=== PATIENT | female | born 1965 | race Caucasian/White ===

== ENCOUNTER → 2018-10-19 | Outpatient (CLI) | payer BC ==
[~2018-10-19] MED LIST: IOHEXOL 350 MG/ML 100 ML VIAL. IV ONE
--- NOTE | 2018-10-19 10:33 | CARD ---
MR#: [id number] Date of Study: 10/19/2018 Ordering Physician: CLARENCE KING, Referring Physician: CLARENCE KING, Tech: Casi Coates RDCS APPROVED REPORT EXAM: Two-dimensional and M-mode echocardiogram with Doppler and color Doppler. Other Information Quality : GoodHR: 75bpm Rhythm : NSR INDICATION Bicuspid Aortic valve 2D DIMENSIONS RVDd2.6 (2.9-3.5cm)Left Atrium(2D)3.3 (1.6-4.0cm) IVSd1.1 (0.7-1.1cm)Aortic Root(2D)2.7 (2.0-3.7cm) LVDd4.9 (3.9-5.9cm)LVOT Diameter1.9 (1.8-2.4cm) PWd1.0 (0.7-1.1cm)LVDs2.9 (2.5-4.0cm) FS (%) 39.8 %SV78.7 ml LVEF(%)70.3 (>50%) M-Mode DIMENSIONS Left Atrium(MM)3.27 (2.5-4.0cm)Aortic Root2.41 (2.2-3.7cm) Aortic Valve AoV Peak Hong.142.2cm/sAoV VTI27.1cm AO Peak GR.8.1mmHgLVOT Peak Hong.90.7cm/s LVOT VTI 21.14cmAO Mean GR.4mmHg ISABELLE (VMAX)1.43es7ZSA (VTI)2.15cm2 Mitral Valve MV E Ddejbdba209.0cm/sMV DECEL [id number] MV A Gdklyejb60.9cm/sE/A Ratio1.2 Pulmonary Valve PV Peak Fejulgfd519.8cm/sPV Peak Grad.7mmHg LEFT VENTRICLE The left ventricle is normal size. Proximal septal thickening is noted. The left ventricular systolic function is normal. The Ejection Fraction is 65-70%. There is normal LV segmental wall motion. The l eft ventricular diastolic function and filling is normal for age. RIGHT VENTRICLE The right ventricle is normal size. There is normal right ventricular wall thickness. The right ventr icular systolic function is normal. ATRIA The left atrium size is normal. The right atrium size is normal. The interatrial septum is intact wit h no evidence for an atrial septal defect or patent foramen ovale as noted on 2-D or Doppler imaging. AORTIC VALVE The aortic valve is trileaflet. The aortic valve is normal in structure and function. Doppler and Col or Flow revealed no significant aortic regurgitation. There is no significant aortic valvular stenosi s. There is no aortic valvular vegetation. MITRAL VALVE The mitral valve is normal in structure and function. There is no evidence of mitral valve prolapse. There is no mitral valve stenosis. Doppler and Color Flow revealed no mitral valve regurgitation note d. TRICUSPID VALVE The tricuspid valve is normal in structure and function. Doppler and Color Flow revealed no tricuspid valve regurgitation noted. There is no tricuspid valve prolapse or vegetation. There is no tricuspid valve stenosis. PULMONIC VALVE The pulmonary valve is normal in structure and function. Doppler and Color Flow revealed no pulmonic valvular regurgitation. There is no pulmonic valvular stenosis. GREAT VESSELS The aortic root is normal in size. The ascending aorta is normal in size. The IVC is normal in size a nd collapses >50% with inspiration. PERICARDIAL EFFUSION There is no evidence of significant pericardial effusion. Critical Notification Critical Value: No <Conclusion> The left ventricular systolic function is normal. The Ejection Fraction is 65-70%. There is normal LV segmental wall motion. The aortic valve is trileaflet. No significant valvular abnormalities. There is no evidence of significant pericardial effusion. Signed by : Arjun Orr, Electronically Approved : 10/19/2018 10:33:31
--- NOTE | 2018-10-19 11:32 | RAD ---
CT angiography of the chest and abdomen 10/19/2018 INDICATION: Bicuspid aortic valve COMPARISON STUDY: None available TECHNIQUE: Multidetector CT imaging of the chest and abdomen was performed following the administration of IV contrast. Angiography protocol including maximum intensity projection 3-D reconstructions of thoracic and abdominal vasculature, created on an independent workstation was included. FINDINGS: Motion artifact limits evaluation of the proximal ascending thoracic aorta. The proximal aorta appears to be normal in diameter measuring approximately 2.2 cm at the sinotubular junction. The midthoracic aorta is grossly normal in diameter measuring approximately 2.5 cm. There is an aberrant origin of the right subclavian artery which is the most distal branch of the thoracic aorta traversing posterior to the esophagus. The right common carotid artery arises from the aortic arch followed by left common carotid artery, followed by the left subclavian artery, followed by the right subclavian. Heart size is normal. No pericardial effusion is identified. No pathologically enlarged mediastinal adenopathy is seen. The pulmonary arteries appear grossly normal in diameter. There is no pneumothorax, pleural effusion, or acute appearing focal consolidative infiltrate. There is a 5 mm noncalcified nodular opacity along the right minor fissure. Nodule is triangular configuration. This most likely represents a small intrafissural lymph node. However recommend stratification based on patient's risk factors and CT follow-up to ensure stability. The liver is mildly low in attenuation. A component of hepatic steatosis may be present. Liver is otherwise unremarkable. Spleen is unremarkable. The adrenal glands are within normal limits. The pancreas is grossly normal. The bilateral kidneys are lobulated in contour, or normal variant, otherwise unremarkable. The abdominal aorta is normal in course and caliber. No evidence of aneurysm or dissection is seen. The celiac artery is patent. Major celiac branches are patent. Superior mesenteric artery is patent. Inferior mesenteric artery is patent. The bilateral renal arteries are patent. Common iliac arteries are patent. Partially visualized portions of the bowel demonstrate no acute abnormality. No acute abnormality involving visualized osseous structures is identified. IMPRESSION: 1. Normal diameter of the thoracic and abdominal aorta without evidence of aneurysm. No acute vascular abnormalities are identified in the abdomen or chest or abdomen. 2. Aberrant right subclavian artery as described 3. 5 mm noncalcified triangular nodule along right minor fissure. This is felt to most likely represents an intrafissural lymph node. CT surveillance to ensure stability recommended based on patient's risk factors as described below. 4. Possible mild hepatic steatosis. No acute intra-abdominal abnormality is identified. Pulmonary Nodule Followup: Fleischner Society recommendations (Radiology 2005; 237; 395-400): In a low risk patient: 4mm or less - No follow up required. >4-6mm- 12 month follow up, if unchanged, no further follow up. >6-8mm- 6-12 month follow up, then at 18-24 months if no change. >8mm- 3, 9, 24 month follow up or consideration of PET/CT. In a high risk patient: <4mm - 12 month follow up, if unchanged then no further follow up. >4-6mm- 6-12 month follow up, then at 18-24 months if no change. >6-8mm- 3-6 month follow up, then at 9-12 months and 24 months if no change Pulmonary Nodule Followup: Fleischner Society recommendations (Radiology 2005; 237; 395-400): In a low risk patient: 4mm or less - No follow up required. >4-6mm- 12 month follow up, if unchanged, no further follow up. >6-8mm- 6-12 month follow up, then at 18-24 months if no change. >8mm- 3, 9, 24 month follow up or consideration of PET/CT. In a high risk patient: <4mm - 12 month follow up, if unchanged then no further follow up. >4-6mm- 6-12 month follow up, then at 18-24 months if no change. >6-8mm- 3-6 month follow up, then at 9-12 months and [address] DOSING PQRS STATEMENT: One or more of the following individualized dose reduction techniques were utilized for this examination: 1. Automated exposure control 2. Adjustment of the mA and/or kV according to patient size 3. Use of iterative reconstruction technique Electronically signed by: Odell Shah MD (10/19/2018 11:30 AM) [id number]
== END | disposition home or self-care (01) ==
LOC: CT 09:09
PROVIDERS: ATTEND Internal Medicine Cardiovascular Disease
DX: Q23.1 Congenital insufficiency of aortic valve (principal); Q25.3 Supravalvular aortic stenosis; K76.0 Fatty (change of) liver, not elsewhere classified
CPT/HCPCS: 71275; 74175; 93306; Q9967

== ENCOUNTER → 2019-09-30 | Outpatient (CLI) | payer BC ==
--- NOTE | 2019-09-30 14:47 | RAD ---
CT scan of the chest without contrast 09/30/2019 CLINICAL HISTORY: History of lung nodule. TECHNIQUE: Unenhanced, contiguous, 3 mm axial sections were obtained through the chest and upper abdomen. One or more of the following individualized dose reduction techniques were utilized for this study: 1. Automated exposure control. 2. Adjustment of the mA and/or kV according to patient size. 3. Use of iterative reconstruction technique. FINDINGS: Comparison study is dated 10/19/2018. The heart and thoracic aorta are within normal limits. No hilar, mediastinal or axillary lymphadenopathy is seen. A 5 mm nodular opacity consistent with a with na intrafissural lymph node is seen within the right middle lobe ( image #40, series 2). This is unchanged from the previous examination. A small area of subsegmental atelectasis is seen anteriorly within the inferior aspect of the right middle lobe. This is unchanged. No new pulmonary nodule is seen. No area of consolidation is noted. No pleural effusion or pneumothorax is noted. Images through the upper abdomen are within normal limits. Very mild S-shaped curvature of the thoracolumbar spine is seen. IMPRESSION: Stable CT appearance of the chest as discussed above. No acute abnormality is seen. Electronically signed by: Anjel Willis MD (09/30/2019 2:44 PM) [id number]
--- NOTE | 2019-09-30 15:41 | CARD ---
MR#: [id number] Date of Study: 09/30/2019 Ordering Physician: CLARENCE NEW, Referring Physician: CLARENCE NEW, Tech: Ivette Felipe APPROVED REPORT EXAM: Two-dimensional and M-mode echocardiogram with Doppler and color Doppler. Other Information Quality : AverageHR: 76bpm INDICATION Aortic Valve Disease RISK FACTORS Hyperlipidemia 2D DIMENSIONS Left Atrium(2D)3.1 (1.6-4.0cm)IVSd0.9 (0.7-1.1cm) Aortic Root(2D)2.6 (2.0-3.7cm)LVDd5.0 (3.9-5.9cm) LVOT Diameter1.9 (1.8-2.4cm)PWd1.0 (0.7-1.1cm) LVDs2.7 (2.5-4.0cm)FS (%) 45.4 % SV91.0 mlLVEF(%)76.5 (>50%) Aortic Valve AoV Peak Hong.193.0cm/sAoV VTI38.8cm AO Peak GR.14.9mmHgLVOT Peak Hong.138.4cm/s LVOT VTI 30.23cmAO Mean GR.8mmHg ISABELLE (VMAX)2.82fe1FJE (VTI)2.23cm2 Mitral Valve MV E Vbmxotjk166.7cm/sMV E Peak Gr.4mmHg MV DECEL [id number] A Yqyefvmi02.0cm/s MV E Mean Gr.2mmHgE/A Ratio1.2 Pulmonary Valve PV Peak Ernmtzsn12.3cm/sPV Peak Grad.3mmHg Tricuspid Valve TR P. Lmzccsju702xd/sRAP VOBTAVVI6viWa TR Peak Gr.66xeWsXSIP37smXy Pulmonary Vein S1 Dqdvfiar53.4cm/sD2 Wanljjqb02.4cm/s LEFT VENTRICLE The left ventricle is normal size. There is normal left ventricular wall thickness. The left ventricu lar systolic function is normal and the ejection fraction is within normal range. The Ejection Fracti on is 55-60%. There is normal LV segmental wall motion. Transmitral Doppler flow pattern is Grade II- pseudonormal filling dynamics. RIGHT VENTRICLE The right ventricle is normal size. There is normal right ventricular wall thickness. The right ventr icular systolic function is normal. ATRIA The left atrium size is normal. The right atrium size is normal. The interatrial septum is intact wit h no evidence for an atrial septal defect or patent foramen ovale as noted on 2-D or Doppler imaging. AORTIC VALVE The aortic valve is thickened but opens well. Doppler and Color Flow revealed no significant aortic r egurgitation. There is no significant aortic valvular stenosis. Calculated aortic valve area is 2.2 c m2 with maximum pressure gradient of 15 mmHg and mean pressure gradient of 8 mmHg. MITRAL VALVE The mitral valve is normal in structure and function. There is no evidence of mitral valve prolapse. There is no mitral valve stenosis. Doppler and Color Flow revealed no mitral valve regurgitation note d. TRICUSPID VALVE The tricuspid valve is normal in structure and function. Doppler and Color Flow revealed no tricuspid valve regurgitation noted with an estimated PAP of 28 mmHg. There is no tricuspid valve stenosis. PULMONIC VALVE The pulmonic valve is not well visualized. Doppler and Color Flow revealed no pulmonic valvular regur gitation. There is no pulmonic valvular stenosis. GREAT VESSELS The aortic root is normal in size. The ascending aorta is normal in size. The IVC is normal in size a nd collapses >50% with inspiration. PERICARDIAL EFFUSION There is no evidence of significant pericardial effusion. Critical Notification Critical Value: No <Conclusion> The left ventricular systolic function is normal and the ejection fraction is within normal range. Th e Ejection Fraction is 55-60%. There is normal LV segmental wall motion. Signed by : Clarence New, Electronically Approved : 09/30/2019 15:40:16
== END | disposition home or self-care (01) ==
LOC: CT 10:15
PROVIDERS: ATTEND Internal Medicine Cardiovascular Disease
DX: I35.8 Other nonrheumatic aortic valve disorders (principal); M43.8X5 Other specified deforming dorsopathies, thoracolumbar region
CPT/HCPCS: 71250; 93306